=== PATIENT | male | born 1960 | race Caucasian/White ===

== ENCOUNTER 2020-12-12 23:28 | Emergency (ER) | payer OTHER ==
[~2020-12-12] VITALS: Ht 185.4 cm; Wt 90.9 kg
[2020-12-13 00:25] VITALS: BP 170/83; PULSE 75; TEMP 99.1
== END 2020-12-13 00:25 | disposition home or self-care (01) ==
LOC: COL.ER 23:28
DX: K02.9 Dental caries, unspecified (principal); F17.210 Nicotine dependence, cigarettes, uncomplicated

== ENCOUNTER 2020-12-15 17:51 | Emergency (ER) | payer OTHER ==
[~2020-12-15] VITALS: Ht 188 cm; Wt 95.5 kg
[2020-12-15] MEDS ORDERED: CLEOCIN HCL300 MG PO (18:45)
[2020-12-15] MEDS ORDERED: PERCOCET 325 MG1 TA2 PO (18:45)
[2020-12-15 19:01] VITALS: BP 177/91; PULSE 74; TEMP 98.8
== END 2020-12-15 19:01 | disposition home or self-care (01) ==
LOC: COL.ER 17:51
DX: K08.89 Other specified disorders of teeth and supporting structures (principal); F17.210 Nicotine dependence, cigarettes, uncomplicated
CPT/HCPCS: J0696